=== PATIENT | male | born 2000 | race Caucasian/White ===

== ENCOUNTER 2025-08-11 17:55 | Inpatient (IN) | payer SELFPAY ==
[~2025-08-11] VITALS: Ht 177.8 cm; Wt 85.3 kg
[2025-08-11 18:05] VITALS: O2SAT 96
[2025-08-11 18:24] LABS: CLARITY URINE CLEAR (CLEAR); COLOR URINE YELLOW (YELLOW); GLUCOSE URINE NEGATIVE (NEGATIVE); KETONES URINE 1+ (NEGATIVE); LEUKOCYTE ESTERASE URINE NEGATIVE (NEGATIVE); NITRITE URINE NEGATIVE (NEGATIVE); OCCULT BLOOD URINE NEGATIVE (NEGATIVE); PH URINE 6.0 (4.5-8.0); PROTEIN URINE 1+ (NEGATIVE); SPECIFIC GRAVITY URINE 1.031 (1.005-1.030); UROBILINOGEN URINE 1.0 E.U./dL (0.2-1.0)
[2025-08-11 19:59] LABS: BASOPHILS % 0.5 % (0.0-2.0); EOSINOPHILS % 0.0 % (0.0-5.0); HEMATOCRIT. 44.7 % (42.0-52.0); HEMOGLOBIN. 14.9 g/dL (14.0-18.0); LYMPHOCYTES % 7.6 % (20.0-50.0); MEAN PLATELET VOLUME 12.1 fl (7.4-10.4); MONOCYTES % 4.6 % (2.0-8.0); NEUTROPHILS % 87.3 % (40.0-76.0); PLATELET 160 x1000/uL (130-400); RED BLOOD CELL COUNT 5.01 mill/uL (4.7-6.1); RED CELL DISTRIBUTION WIDTH 13.4 % (11.6-14.6)
[2025-08-11 20:07] LABS: CREATININE 1.0 mg/dL (0.6-1.3); UREA NITROGEN BLOOD < 5 mg/dL (9-23)
[2025-08-11 20:08] LABS: PROTEIN TOTAL 7.7 g/dL (6.0-8.3)
[2025-08-11 20:09] LABS: ASPARTATE AMINOTRANSFERASE 31 IU/L (<34); BILIRUBIN DIRECT < 0.1 mg/dL (<=3.0); BILIRUBIN TOTAL 0.5 mg/dL (0.1-1.0)
[2025-08-11] MEDS: MAGNESIUM/ALUMINUM HYDROXIDE/SIMETHICONE 30ML UDC PO ONE (20:26)
[2025-08-11] MEDS: FAMOTIDINE 20MG TABLET PO SCH (20:26)
[2025-08-11] MEDS: ACETAMINOPHEN 325MG TABLET PO ONE (20:26)
[2025-08-11 20:42] LABS: BACTERIA URINE TRACE; RBC URINE NONE SEEN /hpf (0-2); SQUAMOUS EPITHELIAL CELL URINE RARE /lpf (RARE/1+); WBC URINE 0-2 /hpf (0-2)
[2025-08-11 21:40] VITALS: BP 133/82; PULSE 72; RESP 19; TEMP 37.1; O2SAT 100
[2025-08-11 22:14] VITALS: BP 133/82; PULSE 94; RESP 19; TEMP 37.1408
[2025-08-11] MEDS ORDERED: MORPHINE SULFATE 2 MG/ML INJ (NOT FOR IM USE) IV PRN (22:30)
[2025-08-11] MEDS ORDERED: ONDANSETRON HCL 4MG/2ML INJ IV PRN (22:30)
[2025-08-12] VITALS: BP 106/59; PULSE 82; RESP 19; TEMP 36.8; O2SAT 97
[2025-08-12] MEDS: DEXT 5%/0.45% NACL KCL 20MEQ/L 1,000 ML IV SCH (00:02)
[2025-08-12 04:00] VITALS: BP 115/61; PULSE 85; RESP 20; TEMP 36.6; O2SAT 100
[2025-08-12 08:00] VITALS: BP 114/64; PULSE 88; RESP 17; TEMP 36.2; O2SAT 99
[2025-08-12] MEDS: PANTOPRAZOLE SODIUM 40 MG/VIAL IV SCH (08:28)
[2025-08-12 08:34] LABS: BASOPHILS % 0.2 % (0.0-2.0); EOSINOPHILS % 0.4 % (0.0-5.0); HEMATOCRIT. 40.8 % (42.0-52.0); HEMOGLOBIN. 14.2 g/dL (14.0-18.0); LYMPHOCYTES % 12.5 % (20.0-50.0); MEAN PLATELET VOLUME 12.8 fl (7.4-10.4); MONOCYTES % 7.9 % (2.0-8.0); NEUTROPHILS % 79.0 % (40.0-76.0); PLATELET 131 x1000/uL (130-400); RED BLOOD CELL COUNT 4.64 mill/uL (4.7-6.1); RED CELL DISTRIBUTION WIDTH 13.6 % (11.6-14.6)
[2025-08-12 08:50] LABS: CREATININE 0.9 mg/dL (0.6-1.3)
[2025-08-12 08:51] LABS: LDL CHOLESTEROL 88 mg/dL (5-100); UREA NITROGEN BLOOD 6 mg/dL (9-23)
[2025-08-12 09:03] LABS: TRIGLYCERIDE 1114 mg/dL (0-150)
[2025-08-12 12:00] VITALS: BP 115/60; PULSE 90; RESP 17; TEMP 36.1; O2SAT 98
[2025-08-12] MEDS ORDERED: IOHEXOL-300 100 ML BOTTLE ONE (15:14)
[2025-08-12 16:00] VITALS: BP 107/61; PULSE 107; RESP 16; TEMP 36.7; O2SAT 96
[2025-08-12] MEDS ORDERED: ACETAMINOPHEN 325MG TABLET PO PRN (19:15)
[2025-08-12] MEDS ORDERED: ONDANSETRON HCL 4MG/2ML INJ IV PRN (19:15)
[2025-08-12 20:00] VITALS: BP 113/50; PULSE 97; RESP 20; TEMP 36.3; O2SAT 98
[2025-08-12] MEDS: PIPERACILLIN/TAZO 3.375G/50ML 50 ML IV SCH (22:10)
[2025-08-12] MEDS: MAGNESIUM 1 G PREMIX 100 ML IV NR (22:11)
[2025-08-12] MEDS ORDERED: NALOXONE HCL 0.4MG/ML VIAL IV PRN (22:15)
[2025-08-12] MEDS: ATORVASTATIN CALCIUM 40MG TABLET PO SCH (23:02)
[2025-08-13 07:06] LABS: BASOPHILS % 0.4 % (0.0-2.0); EOSINOPHILS % 0.8 % (0.0-5.0); HEMATOCRIT. 39.0 % (42.0-52.0); HEMOGLOBIN. 13.2 g/dL (14.0-18.0); LYMPHOCYTES % 13.1 % (20.0-50.0); MEAN PLATELET VOLUME 11.7 fl (7.4-10.4); MONOCYTES % 8.5 % (2.0-8.0); NEUTROPHILS % 77.2 % (40.0-76.0); PLATELET 113 x1000/uL (130-400); RED BLOOD CELL COUNT 4.39 mill/uL (4.7-6.1); RED CELL DISTRIBUTION WIDTH 13.3 % (11.6-14.6)
[2025-08-13 07:33] LABS: CREATININE 1.1 mg/dL (0.6-1.3); UREA NITROGEN BLOOD 7 mg/dL (9-23)
[2025-08-13] MEDS: PANTOPRAZOLE SODIUM 40 MG/VIAL IV SCH (10:08)
[2025-08-13] MEDS ORDERED: FENO145T25 MT (11:21)
[2025-08-13 15:27] VITALS: BP 113/59; PULSE 94; RESP 18; TEMP 98
== END 2025-08-13 15:40 | disposition home or self-care (01) | DRG 282 ==
LOC: ER 17:55 → 6EST 20:51 → EDBEDREQTM 20:54 → EDBEDREQ 20:54 → ENRESERV 21:20
PROVIDERS: ADMIT Internal Medicine; ATTEND Internal Medicine
DX: K85.90 Acute pancreatitis without necrosis or infection, unspecified (principal); R16.2 Hepatomegaly with splenomegaly, not elsewhere classified; E83.42 Hypomagnesemia; D72.829 Elevated white blood cell count, unspecified; E78.5 Hyperlipidemia, unspecified; Z79.899 Other long term (current) drug therapy
CPT/HCPCS: 36415; 74177; 76700; 80048; 80061; 80076; 81003; 82150; 83735; 85025; 99285; A4606; J2470; J2543; J3475; Q9967